=== PATIENT | female | born 1985 | race American Indian/Alaskan Native ===

== ENCOUNTER 2017-05-19 18:37 | Emergency (ER) | payer MEDICAID ==
[2017-05-19 19:53] VITALS: BP 110/74; RESP 20; TEMP 98.1; O2SAT 100; BMI 17.8
[2017-05-19 21:03] VITALS: PULSE 70
--- NOTE | 2017-05-19 22:03 | C.PDOC ---
History Of Present Illness 31 year old female presents to the ED with concern of HIV status and requesting to be tested for HIV. Patient states she had unprotected sex with boyfriend and learned he has a relationship with another partner who is supposedly HIV positive. She denies being concerned about any other STDs or experiencing any symptoms at this time. Time Seen by Provider: 05/19/17 19:24 Chief Complaint (Nursing): Female Genitourinary History Per: Patient History/Exam Limitations: no limitations Associated Symptoms: denies: Fever, Chills, Nausea, Vomiting, Urinary Symptoms Recent travel outside of the [place]: No Abnormal Vaginal Bleeding: No Past Medical History Reviewed: Historical Data, Nursing Documentation, Vital Signs Vital Signs: Last Vital Signs Temp 98.1 F 05/19/17 19:19 Pulse 70 05/19/17 21:03 Resp 20 05/19/17 19:19 BP 110/74 05/19/17 19:19 Pulse Ox 100 05/19/17 22:15 Family History: States: Unknown Family Hx - Social History Hx Alcohol Use: Yes Hx Substance Use: No - Immunization History Hx Tetanus Toxoid Vaccination: No Hx Influenza Vaccination: No Hx Pneumococcal Vaccination: No Review Of Systems Constitutional: Negative for: Fever, Chills, Sweats Gastrointestinal: Negative for: Nausea, Vomiting, Abdominal Pain Genitourinary: Negative for: Dysuria, Hematuria, Vaginal Discharge, Vaginal Bleeding Physical Exam - Physical Exam Appears: Non-toxic, No Acute Distress Skin: Warm, Dry, No Rash Eye(s): bilateral: Normal Inspection, PERRL, EOMI Oral Mucosa: Moist Throat: Normal, No Erythema, No Exudate, Other (No lesions present in the mouth ) Neurological/Psych: Oriented x3 ED Course And Treatment O2 Sat by Pulse Oximetry: 100 (room air ) Progress Note: Pt eloped prior to lab results, HIV test is negative. Medical Decision Making Medical Decision Making: Patient denies prophylaxis. Disposition - Disposition Disposition: ELOPEMENT - ER ONLY Disposition Time: 22:00 Condition: STABLE - Clinical Impression Clinical Impression: Negative laboratory testing for HIV - Scribe Statement The provider has reviewed the documentation as recorded by the Conyibmackenzie Rodriguez All medical record entries made by the Conyibmackenzie were at my direction and personally dictated by me. I have reviewed the chart and agree that the record accurately reflects my personal performance of the history, physical exam, medical decision making, and the department course for this patient. I have also personally directed, reviewed, and agree with the discharge instructions and disposition.
== END 2017-05-19 21:02 | disposition left against medical advice (07) ==
LOC: C.ER 18:37
DX: Z04.8 Encounter for examination and observation for other specified reasons (principal)

== ENCOUNTER 2017-06-15 03:32 | Observation (INO) | payer OTHER, MEDICAID ==
[2017-06-15 03:33] VITALS: BMI 17.8
[2017-06-15] MEDS ORDERED: DiphenhydrAMINE 50 mg/ml Inj ONE (03:46)
[2017-06-15] MEDS ORDERED: DiphenhydrAMINE 50 mg/ml Inj IVP STA (04:05)
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
[2017-06-15 05:04] LABS: BASO # 0.1 K/uL (0.0-0.2); BASO % 0.8 % (0.0-2.0); EOS # 0.2 K/uL (0.0-0.7); EOS % 2.7 % (0.0-4.0); HEMOGLOBIN 12.5 g/dL (11.0-16.0); LYMPH % 33.9 % (20.0-40.0); MEAN CELL VOLUME 70.2 fL (81.0-99.0); MEAN CORPUSCULAR HEMOGLOBIN 22.7 pg (27.0-31.0); MEAN CORPUSCULAR HGB CONC 32.4 g/dL (33.0-37.0); MEAN PLATELET VOLUME 7.8 fL (7.2-11.7); MONO # 0.6 K/uL (0.0-0.8); MONO % 7.1 % (0.0-10.0); NEUT % 55.5 % (50.0-75.0); NRBC % 0.1 % (0.0-2.0); RBC 5.52 Mil/uL (3.80-5.20); RED CELL DISTRIBUTION WIDTH 15.6 % (11.5-14.5)
[2017-06-15 05:16] LABS: ALBUMIN 4.4 g/dL (3.5-5.0)
[2017-06-15 05:19] LABS: GFR AFRICAN-AMERICAN > 60; GFR NON-AFRICAN AMERICAN > 60
[2017-06-15 05:20] LABS: ALB/GLOB RATIO 1.2 (1.0-2.1); ALT/SGPT 39 U/L (9-52); AST/SGOT 36 U/L (14-36); BLOOD UREA NITROGEN 6 mg/dL (7-17); CALCIUM 9.2 mg/dl (8.6-10.4)
[2017-06-15] MEDS ORDERED: Bacitracin 500 Units/gm Oint Foilpak UD ONE (05:59)
[2017-06-15 06:37] VITALS: O2SAT 100
[2017-06-15 08:50] LABS: HCG,QUALITATIVE URINE NEGATIVE (NEGATIVE)
[2017-06-15 08:53] LABS: SQUAMOUS EPITHIAL 12 /hpf (0-5); URINE BACTERIA RARE (<OCC); URINE BILIRUBIN NEGATIVE (NEGATIVE); URINE BLOOD 1+ (NEGATIVE); URINE CLARITY Hazy (Clear); URINE COLOR Yellow (YELLOW); URINE GLUCOSE (UA) NORMAL (Normal); URINE LEUKOCYTE ESTERASE 2+ Leu/uL (Negative); URINE NITRATE NEGATIVE (NEGATIVE); URINE PROTEIN NEGATIVE (NEGATIVE)
[2017-06-15 08:59] LABS: BARBITURATES, UR NEGATIVE (NEGATIVE)
[2017-06-15 09:00] LABS: BENZODIAZEPINES, UR NEGATIVE (NEGATIVE)
[2017-06-15 09:02] LABS: OPIATES, UR NEGATIVE (NEGATIVE)
[2017-06-15 09:03] LABS: PHENCYCLIDINE, UR NEGATIVE (NEGATIVE)
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
[2017-06-15 13:17] VITALS: BP 98/60; PULSE 61; RESP 20; TEMP 97.6
== END 2017-06-15 12:45 | disposition home or self-care (01) ==
LOC: C.ER 03:32 → C.9OBSV 06:21
PROVIDERS: ADMIT Emergency Medicine; ATTEND Emergency Medicine
DX: F10.120 Alcohol abuse with intoxication, uncomplicated (principal); Y90.8 Blood alcohol level of 240 mg/100 ml or more
CPT/HCPCS: 70450; 72125; 80053; 81001; 84703; 85025; 96372; 96374; 99285; G0378; G0480; J1200; J2060; J3486

== ENCOUNTER 2018-09-04 09:00 | Emergency (ER) | payer MEDICAID, OTHER ==
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
[2018-09-04 15:34] VITALS: BP 117/71; PULSE 90; RESP 20; TEMP 97.5
== END 2018-09-04 10:30 | disposition home or self-care (01) ==
LOC: C.EROB 09:00
DX: O47.1 False labor at or after 37 completed weeks of gestation (principal); Z3A.39 39 weeks gestation of pregnancy